=== PATIENT | female | born 1965 | race Caucasian/White ===

== ENCOUNTER 2021-04-04 10:42 | Outpatient (CLI) | payer BC, SELFPAY ==
--- NOTE | 2021-04-04 11:03 | EST_ITS ---
Patient Info Name: Dixie Mauricio Age: 56 years : 1965 Gender: Female Ht: 64 in Wt: 165 lbs BSA: 1.86 m2 HR: 73 bpm BP: 150 / 85 mmHg Heart Rhythm: Sinus Rhythm Exam Date: 04/04/2021 11:19 AM Exam Location: [facility], [place] [facility] Patient Status: Outpatient Admit Date: 04/04/2021 Staff Ordering Physician: Ra Almanza MD Attending Provider: Ra Almanza MD Exercise Technologist: Saida Munoz CT Exercise Physician: Cory Knight DO Exam Type: CA stress test treadmill Study Info Indications R07.9 - Chest pain, unspecified A treadmill exercise stress test was performed. Summary 1. 1. Negative Kevin exercise stress test for ischemic ST changes by ECG criteria. 2. 2. Good functional capacity, achieving 9 METs of workload. 3. 3. Baseline hypertension. 4. 4. Appropriate HR response to exercise. 5. 5. Appropriate HR recovery at 1 minute post exercise. 6. 6. No imaging with stress testing. 7. 7. Patient informed of the above results. Protocol: Kevin Stress ECG Details Stage: REST Duration (min): 0 min : 53 sec Speed (mph): 0.0 Grade (%): 0 HR (bpm): 75 SBP (mmHg): 150 DBP (mmHg): 85 METS: --- Stage: REST Duration (min): 7 min : 18 sec Speed (mph): 0.0 Grade (%): 0 HR (bpm): 79 SBP (mmHg): 150 DBP (mmHg): 85 METS: --- Stage: STAGE 1 Duration (min): 1 min : 0 sec Speed (mph): 1.7 Grade (%): 10 HR (bpm): 110 SBP (mmHg): 150 DBP (mmHg): 85 METS: --- Stage: STAGE 1 Duration (min): 2 min : 0 sec Speed (mph): 1.7 Grade (%): 10 HR (bpm): 115 SBP (mmHg): 150 DBP (mmHg): 85 METS: --- Stage: STAGE 1 Duration (min): 3 min : 0 sec Speed (mph): 1.7 Grade (%): 10 HR (bpm): 117 SBP (mmHg): 182 DBP (mmHg): 82 METS: --- Stage: STAGE 2 Duration (min): 1 min : 0 sec Speed (mph): 2.5 Grade (%): 12 HR (bpm): 130 SBP (mmHg): 182 DBP (mmHg): 82 METS: --- Stage: STAGE 2 Duration (min): 2 min : 0 sec Speed (mph): 2.5 Grade (%): 12 HR (bpm): 133 SBP (mmHg): 187 DBP (mmHg): 89 METS: --- Stage: STAGE 2 Duration (min): 3 min : 0 sec Speed (mph): 2.5 Grade (%): 12 HR (bpm): 138 SBP (mmHg): 187 DBP (mmHg): 89 METS: --- Stage: STAGE 3 Duration (min): 1 min : 0 sec Speed (mph): 3.4 Grade (%): 14 HR (bpm): 157 SBP (mmHg): 187 DBP (mmHg): 89 METS: --- Stage: STAGE 3 Duration (min): 1 min : 10 sec Speed (mph): 3.4 Grade (%): 14 HR (bpm): 161 SBP (mmHg): 187 DBP (mmHg): 89 METS: --- Stage: RECOVERY Duration (min): 0 min : 49 sec Speed (mph): 0.0 Grade (%): 0 HR (bpm): 132 SBP (mmHg): 187 DBP (mmHg): 89 METS: --- Stage: RECOVERY Duration (min): 1 min : 20 sec Speed (mph): 0.0 Grade (%): 0 HR (bpm): 115 SBP (mmHg): 193 DBP (mmHg): 81
== END 2021-04-04 10:43 | disposition home or self-care (01) ==
LOC: ANHCARD 10:43
PROVIDERS: PCP Family Medicine; Visit Provider Family Medicine
DX: R07.89 Other chest pain (principal)
CPT/HCPCS: 93017

== ENCOUNTER → 2021-06-24 07:37 | Outpatient (CLI) | payer BC, SELFPAY ==
[2021-06-24 19:53] LABS: SARS-CoV-2 RNA PCR Negative
== END ==
PROVIDERS: PCP Family Medicine; Visit Provider Internal Medicine Gastroenterology
DX: Z01.812 Encounter for preprocedural laboratory examination (principal); Z20.822 Contact with and (suspected) exposure to COVID-19
CPT/HCPCS: C9803; U0003; U0005

== ENCOUNTER 2021-06-27 01:37 | Day surgery (SDC) | payer BC, SELFPAY ==
[2021-06-17 13:07] VITALS: BMI 29.1
--- NOTE | 2021-06-26 13:34 | P.PNAN_ITS ---
Anes - Initial Pre Proc Eval Procedure: Operation Date: 06/27/21 07:30 Proposed Procedures p Screening Colonoscopy - Lucien Britt MD Date/Time: 06/26/21 13:34 Surgeon: Lucien Britt MD Pre Op Diagnosis: hx of colon polyps Patient Data Age: 56 Gender: F Height: 1.63 m Weight: 77 kg Allergies Allergy/AdvReac Type Severity Reaction Status Date / Time No Known Allergies Allergy Unknown Verified 06/27/21 06:25 Home Medications Medication Instructions Recorded Confirmed Type calcium carbonate-vitamin D3 2 tablet PO DAILY 06/17/21 06/27/21 History [Vitamin D3 (with calcium carb)] vitamin B complex 1 tablet PO DAILY 06/17/21 06/27/21 History zinc 25 mg PO DAILY 06/17/21 06/27/21 History Patient hx anesthesia problems: none Family hx anesthesia problems: none Results Review: All pre-operative results and documents have been reviewed as part of the pre-operative evaluation. [facility] Past Medical History Medical History (Updated 04/22/21 @ 12:55 by Ra Almanza MD) Anxiety Atypical chest pain exercise stress test on 04/04/2021 was negative BMI 28.0-28.9,adult Colon polyp, hyperplastic (02/09/14) hyperplastic distal sigmoid colon polyp Dr. Gibson on 02/09/2014 COVID-19 (04/06/20) Fatigue Mixed hyperlipidemia (03/18/21) total cholesterol 256, triglycerides 91, HDL 96, LDL 140, overall profile excellent Situational anxiety (~02/2021) severe situational anxiety over COVID vaccination Mandate Family History Family History (Updated 03/06/21 @ 13:13 by Susu Evans MA) Father Alcoholism Depression Anxiety Heart disease Mother Alcoholism Cancer Diabetes mellitus Hypertension Depression Anxiety Heart disease Sibling Anxiety Depression Grandparent Asthma Cancer Diabetes mellitus Hypertension Heart disease Social History Social History (Updated 03/06/21 @ 13:15 by Susu Evans MA) Smoking status: Never smoker Tobacco type: cigarettes Alcohol intake: current Drinks per week: 4 Alcohol use details: light beer Substance use: never Living arrangements: with family Spiritual care concerns: No Anes - Eval Final PreProcedure Day of Procedure 06/26/21 13:34 Patient weight: overweight Heart: regular rate and rhythm Lungs: clear to auscultation and normal air movement Airway: Mallampati scale class II Neurological: alert and oriented Last oral intake: >/= 8 hours ASA classification: II Emergent: no Anesthetic plan: proceed Anesthesia type and monitoring: general GIVS and standard monitoring Results Review: All pre-operative results and documents have been reviewed as part of the pre-operative evaluation. Informed Consent: The patient's anesthetic plan and its attendant risks and benefits were discussed with the patient/family/POA. Questions were solicited and answers provided to the satisfaction of the patient/family/POA.
[2021-06-27 06:20] VITALS: BP 128/97; PULSE 88; RESP 16; TEMP 36.1; O2SAT 100; BMI 27.6
[2021-06-27] MEDS: LACTATED RINGERS 1,000 ML 150 ML IV CONT (06:38)
--- NOTE | 2021-06-27 07:31 | WPDGICN ---
Assessment and Plan Assessment and plan (1) Encounter for screening colonoscopy: Code(s): Z12.11 - Encounter for screening for malignant neoplasm of colon Status: Acute Assessment and Plan: Patient presents for screening colonoscopy at the request of primary care service. She appears to be at average risk for colon polyps. GI Consult Note Consult date/time: 06/27/21 07:31 HPI: Dixie Mauricio is a 56 year old femalePresents for screening colonoscopy. Patient gives a history of prior colon [place] [address] Gibson. Apparently this was a hyperplastic polyp. Patient denies any ongoing abdominal pain. Her current weight appetite and bowel movements are normal. She denies abdominal pain. She has had no bleeding. Her family history is noncontributory. Review of Systems Review of Systems: All systems reviewed & are unremarkable except as noted in HPI and below PMFSH Past Medical History Medical History (Updated 06/27/21 @ 07:32 by Lucien Britt MD) Anxiety Atypical chest pain exercise stress test on 04/04/2021 was negative BMI 28.0-28.9,adult Colon polyp, hyperplastic (02/09/14) hyperplastic distal sigmoid colon polyp Dr. Gibson on 02/09/2014 COVID-19 (04/06/20) Fatigue Mixed hyperlipidemia (03/18/21) total cholesterol 256, triglycerides 91, HDL 96, LDL 140, overall profile excellent Situational anxiety (~02/2021) severe situational anxiety over COVID vaccination Mandate Family History Family History (Updated 03/06/21 @ 13:13 by Susu Evans MA) Father Alcoholism Depression Anxiety Heart disease Mother Alcoholism Cancer Diabetes mellitus Hypertension Depression Anxiety Heart disease Sibling Anxiety Depression Grandparent Asthma Cancer Diabetes mellitus Hypertension Heart disease Social History Social History (Updated 03/06/21 @ 13:15 by Susu Evans MA) Smoking status: Never smoker Tobacco type: cigarettes Alcohol intake: current Drinks per week: 4 Alcohol use details: light beer Substance use: never Living arrangements: with family Spiritual care concerns: No Meds Home Medications and Allergies Home Medications Medication Instructions Recorded Confirmed Type calcium carbonate-vitamin D3 2 tablet PO DAILY 06/17/21 06/27/21 History [Vitamin D3 (with calcium carb)] vitamin B complex 1 tablet PO DAILY 06/17/21 06/27/21 History zinc 25 mg PO DAILY 06/17/21 06/27/21 History Allergies Allergy/AdvReac Type Severity Reaction Status Date / Time No Known Allergies Allergy Unknown Verified 06/27/21 06:25 Vital Signs Vital Signs - 24 hr 06/27/21 06:20 Temperature 96.9 F L Pulse Rate 88 Respiratory Rate 16 Blood Pressure 128/97 H Pulse Oximetry 100 Exam Narrative: Physical exam reveals patient to be alert. Vital signs stable. HEENT exam is unremarkable. Patient is anicteric. Lungs are clear to auscultation and percussion. Heart is without murmur or extra sounds. Abdomen bowel sounds are present soft nontender with no organomegaly. Digital external rectal exam is normal.
[2021-06-27 07:54] VITALS: BP 112/57; PULSE 71; RESP 19; O2SAT 99
[2021-06-27 08:04] VITALS: BP 124/71; PULSE 72; RESP 16; O2SAT 99
[2021-06-27 08:14] VITALS: BP 135/80; PULSE 67; RESP 16; O2SAT 99
== END 2021-06-27 08:24 | disposition home or self-care (01) ==
PROVIDERS: PCP Family Medicine; Visit Provider Internal Medicine Gastroenterology
PROC: 0DJD8ZZ Inspection of Lower Intestinal Tract, Via Natural or Artificial Opening Endoscopic (ICD-10-PCS; CPT 45378; principal; 2021-06-27 07:30)
DX: Z12.11 Encounter for screening for malignant neoplasm of colon (principal); K64.8 Other hemorrhoids; K57.30 Diverticulosis of large intestine without perforation or abscess without bleeding; Z86.010 Personal history of colon polyps
CPT/HCPCS: 45378; J2704; J7120